=== PATIENT | female | born 2000 | race Caucasian/White ===

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

== ENCOUNTER 2023-08-24 10:25 | Emergency (ER) | payer OTHER, SELFPAY ==
[2023-08-24 10:27] VITALS: BP 114/72; PULSE 72; RESP 14; TEMP 36.1; O2SAT 100; BMI 23.4
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
[2023-08-24] MEDS: Ibuprofen 600 MG Tablet PO (10:54)
[2023-08-24 10:58] VITALS: BP 126/64; PULSE 72; RESP 16; TEMP 36.6; O2SAT 99
== END 2023-08-24 11:11 | disposition home or self-care (01) ==
LOC: ED 11:10
PROVIDERS: Emergency Provider Emergency Medicine; PCP Pediatrics; Referring Provider Emergency Medicine; Visit Provider Emergency Medicine
DX: S16.1XXA Strain of muscle, fascia and tendon at neck level, initial encounter (principal); V40.5XXA Car driver injured in collision with pedestrian or animal in traffic accident, initial encounter; S60.222A Contusion of left hand, initial encounter
CPT/HCPCS: 99282